=== PATIENT | female | born 1935 | race Caucasian/White ===

== ENCOUNTER 2022-12-26 08:24 | Emergency (ER) | payer MEDICARE, SELFPAY ==
--- NOTE | ~2022-12-26 | XR_ITS ---
XR pelvis 1-2V 12/26/2022 10:00 INDICATION: Pelvic pain after fall PROCEDURE: AP pelvis COMPARISON: No prior studies for comparison. FINDINGS: Fracture, dislocation or subluxation is not identified. Pelvic rings are intact. Osteopenia . The soft tissues appear within normal limits. No foreign bodies are identified. IMPRESSION: 1: NO ACUTE BONE OR JOINT ABNORMALITY IDENTIFIED. Reviewed, dictated and finalized at location B. SIONS INSPECTOR
--- NOTE | ~2022-12-26 | CT_ITS ---
Noncontrast CT scan of the cervical spine Technique: Multiple contiguous axial [address] images of the cervical spine were obtained and rec onstructed in 2D sagittal and coronal planes on the acquisition scanner. Dose reduction technique was used on this scan by utilizing automated exposure control, adjustment of the mA and/or kV according to patient size. Clinical History: Pain Findings: No fracture identified. Minimal grade 1 retrolisthesis of C4 over C5 noted. There is modera te degenerative disc narrowing at C4-C5. There is fusion of the left C2-C3 facet joint. There is mode rate right-sided facet joint degenerative change throughout the cervical spine. There is uncovertebra l degenerative change at C4-C5 and C5-C6. Probable mild bilateral neural foraminal narrowing at C4-C5 . Probable mild canal stenosis at C4-C5. No prevertebral soft tissue swelling. Impression: No fracture. Moderate degenerative spondylosis, as detailed above. Suspected mild canal stenosis and bilateral todd ral foraminal narrowing at C4-C5. Reviewed, dictated and finalized at [facility]. VIORAL CONSULTANT Impression: No fracture. Moderate degenerative spondylosis, as detailed above. Suspected mild canal sten osis and bilateral neural foraminal narrowing at C4-C5.
--- NOTE | ~2022-12-26 | CT_ITS ---
EXAMINATION: CT brain wo con DATE: 12/26/2022 09:54 INDICATION: Head injury. TECHNIQUE: Computed tomography (CT) of the head was performed without intravenous contrast. The dose- length product was 605.33 mGy-cm. Automated exposure control and iterative reconstruction technique w ere employed. COMPARISON: None FINDINGS: Generalized atrophy. There are scattered mild periventricular and subcortical white matter changes, most likely related to small vessel ischemic disease (microangiopathy). There is intracrania l atherosclerosis. No acute infarction, hemorrhage, mass or mass effect. Paranasal sinuses and mastoi ds are pneumatized. No depressed skull fractures. IMPRESSION: 1. No acute intracranial abnormality. Reviewed, dictated and finalized at location B. BREAKER
--- NOTE | ~2022-12-26 | XR_ITS ---
Clinical Indication: Chest pain PA and lateral views of the chest: Comparison: None Findings: The lungs are clear, without evidence of focal consolidation or pleural effusion. Probable COPD. Cardiomediastinal silhouette is within normal limits. Bones and soft tissues are unremarkable. Impression: COPD. Clear lungs. Reviewed, dictated and finalized at location . [employer] WORK Impression: COPD. Clear lungs.
[2022-12-26 08:35] VITALS: BP 161/67; PULSE 68; RESP 16; TEMP 36.6; O2SAT 98
--- NOTE | 2022-12-26 09:24 | ECG_ITS ---
Measurements Intervals [place] Rate: 52 P: 60 MD: 158 QRS: 42 QRSD: 88 T: 46 QT: 492 QTc: 458 Interpretive Statements SINUS BRADYCARDIA PROLONGED QT INTERVAL NO PREVIOUS ECG AVAILABLE FOR COMPARISON Electronically Signed On 12-26-2022 15:03:17 ELECTRICAL PANEL BUILDER by Marcela Gregorio M.D.
--- NOTE | 2022-12-26 09:29 | ED.FALL ---
HPI - Fall General Chief Complaint: Fall Stated Complaint: glf and dizziness Time Seen by Provider: 12/26/22 09:11 Source: patient, EMS and RN notes reviewed Mode of arrival: EMS Limitations: dementia History of Present Illness HPI Narrative: This is a 87-year-old female that presents to the emergency department for a ground-level fall today. Reportedly was found on the floor by nursing staff calling for help. Patient is alert and oriented to self which is baseline for her. She has a laceration on her forehead. She reports a headache. Also reporting she has been having trouble with dizziness lately. She is unsure why she fell. Believes she got out of bed and lost her balance. Related Data Allergies Allergy/AdvReac Type Severity Reaction Status Date / Time PCN Allergy Uncoded 05/17/12 00:36 Review of Systems Review of Systems: ROS unobtainable: Yes unobtainable due to mental status (dementia) [facility] Past Medical History Medical History (Updated 12/26/22 @ 12:20 by Heena Pascual PA-C) History of dementia History of hypothyroidism Social History Social History (Updated 12/26/22 @ 09:35 by Heena Pascual PA-C) Substance use: never Exam Narrative: GENERAL: Elderly, well-nourished, and in no acute distress. HEAD: Normocephalic. 2cm linear laceration into subcutaneous tissue over the right side of the forehead EYES: PERRLA and EOMI. ENT: Nares clear, no rhinorrhea or epistaxis. Mucous membranes moist. Oropharynx without tonsillar hypertrophy exudate or other lesions. Bilateral TMs pearly manrique non-bulging NECK: Supple. No adenopathy or masses. CHEST: Clear to auscultation. No respiratory distress. No wheezes rales or rhonchi HEART: Regular rate and rhythm. No murmur heard. Normal peripheral pulses. BACK: No midline thoracic or lumbar spine tenderness EXTREMITIES: Normal range of motion. No edema or obvious. SKIN: Warm, dry, no rash. NEURO: No focal deficits. Alert and oriented x1. CN II-XII grossly intact PSYCH: Normal mood and affect Course Vital Signs Vital signs: Vital Signs Temperature 97.8 F 12/26/22 08:35 Pulse Rate 68 12/26/22 08:35 Respiratory Rate 16 12/26/22 08:35 Blood Pressure 161/67 H 12/26/22 08:35 Pulse Oximetry 98 12/26/22 08:35 Temperature 97.8 F 12/26/22 08:35 Pulse Rate 62 12/26/22 11:00 Respiratory Rate 20 12/26/22 11:00 Blood Pressure 153/55 H 12/26/22 11:00 Pulse Oximetry 98 12/26/22 11:00 Procedures Laceration Laceration 1: Date: 12/26/22 Time: 12:19 Site: face Side (If applicable): right Size (cm): 4 Description: linear Depth: simple, single layer Local Anesthetic: lidocaine 1% Amount of anesthesia used (mL): 3 Pre-repair: wound explored and irrigated ====== Skin Level ====== Skin layer closed with: nylon Size (cm): 5-0 Number of sutures: 4 Technique: simple, interrupted ====== Subcutaneous Layer ====== ====== Muscle Layer ====== ====== Tendon Layer ====== MDM - Fall MDM Narrative Medical decision making narrative: Patient presents to the emergency department after a fall today with head injury. Is alert and oriented at her baseline. Has no focal deficits. Her vitals are stable. Patient had a laceration noted on her forehead. This was irrigated and closed with sutures. Patient was updated on tetanus. She denies any other focal injuries or areas of pain. Was reporting she had been having some trouble with dizziness over the last several weeks. Thought that she had just lost her balance. CBC is without leukocytosis. Patient is afebrile and nontoxic-appearing. Does show normocytic anemia with hemoglobin of 11. Metabolic panel with maybe some evidence of mild dehydration. Patient hydrated in the ED. Urine is without evidence of infection. CT scan of the brain and cervical spine without acute findings. Chest x-ray and
[2022-12-26 09:44] LABS: Alanine Aminotransferase 17 U/L (6-35); Albumin Level 3.6 g/dL (3.5-5.1); Alkaline Phosphatase 65 U/L (38-126); Anion Gap 2 mmol/L (8-16); Aspartate Amino Transferase 31 U/L (14-36); Bilirubin,Total 0.4 mg/dL (0.2-1.3); Blood Urea Nitrogen 25 mg/dL (7-17); Calcium 8.1 mg/dL (8.4-10.2); Carbon Dioxide 32 mmol/L (22-30); Chloride 104 mmol/L (98-107); Estimated CRCL calculation 30 ml/min; Estimated Glomerular Filt Rate 59; Glucose 90 mg/dL (65-110); Potassium 4.1 mmol/L (3.4-5.0); Sodium 138 mmol/L (137-145)
[2022-12-26 10:10] LABS: Basophils Absolute Auto 0.1 K/mm3 (0.0-0.1); Eosinophils Absolute Auto 0.2 K/mm3 (0-0.3); Eosinophils Percent Auto 2.8 % (0-4.4); Hematocrit 33.8 % (37.0-47.0); Immature Granulocyte Absolute 0.02 K/mm3 (0.00-0.031); Immature Granulocyte Percent A 0.3 % (0-0.5); Lymphocytes Percent Auto 36.3 % (18.3-44.2); Mean Corpuscular HGB Conc 32.5 g/dl (32-36); Mean Corpuscular Hemoglobin 31.6 pg (26-34); Mean Corpuscular Volume 97.1 fl (80-100); Mean Platelet Volume 10.4 fl (7.4-10.4); Monocytes Absolute Auto 1.2 K/mm3 (0.1-0.6); Monocytes Percent Auto 19.9 % (2.6-8.5); Neutrophils Absolute Auto 2.3 K/mm3 (1.3-6.7); Neutrophils Percent Auto 39.7 % (45.5-73.1); Platelet Count Result 199 k/mm3 (150-375); Red Blood Count 3.48 M/mm3 (4.2-5.4); Red Cell Distribution Width 14.7 % (11.5-14.5); White Blood Count 5.8 K/mm3 (4.5-10.0)
[2022-12-26] MEDS: ONDANSETRON INJ 4 MG/2 ML VIAL IV PUSH (10:25)
[2022-12-26] MEDS: SODIUM CHLORIDE 0.9% IV 500 ML 999 ML IV CONT (10:25)
[2022-12-26] MEDS: MECLIZINE HCL 25 MG TABLET PO (10:25)
[2022-12-26] MEDS: LIDOCAINE HCL 1% LOCAL INJ 20 ML VIAL (10:25)
[2022-12-26] MEDS: TETANUS,DIPHTHERIA,AC PERTUSSIS ADULT (0.5 ML) BOOSTRIX IM (10:29)
[2022-12-26 10:30] VITALS: BP 130/84; PULSE 54; RESP 18; O2SAT 96
[2022-12-26 10:52] LABS: Appearance Urine Clear (Clear); Bilirubin Urine Negative (Negative); Blood Urine Negative (Negative); Color Urine Yellow (Yellow); Glucose Urine UA Negative (Negative); Ketones Urine Negative (Negative); Leukocyte Esterase Ur Negative LEU/UL (Negative); Nitrate Urine Negative (Negative); Protein Urine Negative (Negative)
[2022-12-26 11:00] VITALS: BP 153/55; PULSE 62; RESP 20; O2SAT 98
[2022-12-26 11:05] LABS: Add Urine Microscopic? NO
== END 2022-12-26 15:00 ==
PROVIDERS: Emergency Provider Physician Assistant; PCP Internal Medicine
DX: S01.81XA Laceration without foreign body of other part of head, initial encounter (principal); R00.1 Bradycardia, unspecified; E03.9 Hypothyroidism, unspecified; F03.90 Unspecified dementia, unspecified severity, without behavioral disturbance, psychotic disturbance, mood disturbance, and anxiety; W19.XXXA Unspecified fall, initial encounter; Z23 Encounter for immunization
CPT/HCPCS: 12002; 36415; 70450; 71046; 72125; 72170; 80053; 81003; 85025; 90471; 90715; 93005; 96361; 96374; 99284; A9270; J2405; J7040

== ENCOUNTER 2023-01-07 03:04 | Emergency (ER) | payer MEDICARE, SELFPAY ==
[2023-01-07] VITALS (13 sets, daily range): BP systolic 116–179; BP diastolic 39–56; PULSE 53–57; RESP 12–27; O2SAT 97–100
--- NOTE | ~2023-01-07 | XR_ITS ---
EXAMINATION: XR chest 1V portable DATE: 01/07/2023 04:06 INDICATION: Weakness TECHNIQUE: frontal and lateral views of the chest were obtained. COMPARISON: Chest radiograph dated 12/26/2022 FINDINGS: The lungs remain clear with no focal airspace opacities, pulmonary edema, pleural effusion or pneumot horax. Heart size is normal. Moderate-sized hiatal hernia. IMPRESSION: 1. No acute cardiopulmonary disease. 2. Moderate-sized hiatal hernia. Reviewed, dictated and finalized at location A. ETRAILER SERVICER
--- NOTE | ~2023-01-07 | CT_ITS ---
EXAMINATION: CT brain wo con DATE: 01/07/2023 04:27 INDICATION: Dizziness. TECHNIQUE: Computed tomography (CT) of the head was performed without intravenous contrast. The mA wa s adjusted according to patient size. Iterative reconstruction technique was employed. The dose-lengt h product was 605.33 mGy-cm. COMPARISON: Head CT 12/26/2022 FINDINGS: There are scattered areas of low attenuation in the cerebral white matter. There is no intr acranial hemorrhage, acute infarction, or abnormal intracranial mass lesion. The ventricles are ivan l in size. There are likely changes of ocular lens replacement surgeries. There is mild mucosal thick ening in the paranasal sinuses. The mastoid air cells are normal. IMPRESSION: 1. Stable moderate nonspecific cerebral white matter disease, which likely represents chronic small v essel ischemic disease. Reviewed, dictated and finalized at location D. UP WORKER IMPRESSION: 1. Stable moderate nonspecific cerebral white matter disease, which likely repr esents chronic small vessel ischemic disease.
[2023-01-07] MEDS: SODIUM CHLORIDE 0.9% IV 1,000 ML 999 ML IV CONT (03:31)
[2023-01-07] MEDS: MECLIZINE HCL 25 MG TABLET PO (03:31)
[2023-01-07 03:50] LABS: Basophils Absolute Auto 0.1 K/mm3 (0.0-0.1); Basophils Percent Auto 0.9 % (0.2-1.2); Eosinophils Absolute Auto 0.3 K/mm3 (0-0.3); Eosinophils Percent Auto 3.9 % (0-4.4); Hematocrit 33.6 % (37.0-47.0); Immature Granulocyte Absolute 0.01 K/mm3 (0.00-0.031); Immature Granulocyte Percent A 0.1 % (0-0.5); Lymphocytes Absolute Auto 3.29 K/mm3 (0.9-3.2); Lymphocytes Percent Auto 49.3 % (18.3-44.2); Mean Corpuscular HGB Conc 32.7 g/dl (32-36); Mean Corpuscular Hemoglobin 30.9 pg (26-34); Mean Corpuscular Volume 94.4 fl (80-100); Mean Platelet Volume 10.4 fl (7.4-10.4); Monocytes Absolute Auto 1.2 K/mm3 (0.1-0.6); Monocytes Percent Auto 18.4 % (2.6-8.5); Neutrophils Absolute Auto 1.8 K/mm3 (1.3-6.7); Neutrophils Percent Auto 27.4 % (45.5-73.1); Platelet Count Result 194 k/mm3 (150-375); Red Blood Count 3.56 M/mm3 (4.2-5.4); Red Cell Distribution Width 14.5 % (11.5-14.5); White Blood Count 6.7 K/mm3 (4.5-10.0)
--- NOTE | 2023-01-07 03:54 | ED.GENADULT ---
HPI - General Adult General Chief complaint: Dizziness Stated complaint: DIZZINESS Time Seen by Provider: 01/07/23 03:07 History of Present Illness HPI narrative: Patient 87-year-old female who presents the emergency department with chief complaint of dizziness. Patient had a recent fall and had a laceration repaired on her forehead. The patient was at her facility where she lives at and was complaining of feeling lightheaded. The patient reports no new trauma denies vomiting Related Data Home Medications Medication Instructions Recorded Confirmed cyanocobalamin (vitamin B-12) mcg MONTHLY 01/07/23 1,000 mcg/mL injection syringe divalproex 125 mg capsule,delayed 125 mg PO BID 01/07/23 release sprinkle donepezil 10 mg tablet 15 mg PO HS 01/07/23 hydrocortisone 1 % topical cream 1 applic topical BID 01/07/23 levothyroxine 25 mcg tablet 25 mcg PO DAILY 01/07/23 paraben-cetyl alcohol-stearyl topical BID 01/07/23 alcohol-propy glycol-sls topical wheat cleaner sertraline 100 mg tablet 100 mg PO DAILY 01/07/23 Allergies Allergy/AdvReac Type Severity Reaction Status Date / Time egg Allergy Unknown Verified 01/07/23 04:11 influenza virus vacc Allergy Unknown Verified 01/07/23 04:11 trivalent, spl PCN Allergy Unknown Uncoded 01/07/23 04:11 Review of Systems Review of Systems: A 10 system review of systems was completed on the patient and is negative except for what is stated in the HPI. Nursing and ancillary documentation was reviewed. [facility] Past Medical History Medical History History of dementia History of hypothyroidism Social History Social History Substance use: never Exam Narrative: GENERAL: Well-appearing, well-nourished, and in no acute distress. HEAD: Normocephalic, atraumatic. EYES: PERRLA and EOMI. ENT: Nares clear, no rhinorrhea or epistaxis. Mucous membranes moist. NECK: Supple. CHEST: Clear to auscultation. No respiratory distress. HEART: Regular rate and rhythm. No murmur heard. Normal peripheral pulses. ABDOMEN: Soft, nontender, nondistended, normal active bowel sounds. EXTREMITIES: Normal range of motion. No edema. SKIN: Warm, dry, no rash. NEURO: No focal deficits. Alert and oriented x3. PSYCH: Normal mood and affect. Course Vital Signs Vital signs: Vital Signs Pulse Rate 53 L 01/07/23 03:13 Respiratory Rate 12 01/07/23 03:13 Blood Pressure 179/52 H 01/07/23 03:13 Pulse Oximetry 100 01/07/23 03:13 Pulse Rate 53 L 01/07/23 04:01 Respiratory Rate 19 01/07/23 04:01 Blood Pressure 177/49 H 01/07/23 04:01 Pulse Oximetry 100 01/07/23 04:01 Medical Decision Making MDM Narrative Medical decision making narrative: Differential diagnosis includes subdural hematoma, epidural hematoma, cerebral contusion, dehydration electrolyte abnormality vertigo Patient received IV fluids and received a dose of meclizine in the emergency department. Patient is feeling much better at this time CT head shows no evidence of hemorrhage or acute finding. Vital Signs Vital Signs: Vital Signs Pulse Rate 53 L 01/07/23 03:13 Respiratory Rate 12 01/07/23 03:13 Blood Pressure 179/52 H 01/07/23 03:13 Pulse Oximetry 100 01/07/23 03:13 Pulse Rate 53 L 01/07/23 04:01 Respiratory Rate 19 01/07/23 04:01 Blood Pressure 177/49 H 01/07/23 04:01 Pulse Oximetry 100 01/07/23 04:01 Lab Data 01/07/23 03:30 01/07/23 03:30 Labs: Lab Results 01/07/23 01/07/23 01/07/23 Range/Units 03:30 03:30 03:30 WBC 6.7 (4.5-10.0) K/mm3 RBC 3.56 L (4.2-5.4) M/mm3 Hgb 11.0 L (12.0-15.0) g/dL Hct 33.6 L (37.0-47.0) % MCV 94.4 (80-100) fl MCH 30.9 (26-34) pg MCHC 32.7 (32-36) g/dl RDW 14.5 (11.5-14.5) % Plt Count 194 (150-375) k/mm3 MPV 10.4 (7.4
[2023-01-07 03:55] LABS: Lactic Acid Reflex 0.9 mmol/L (0.7-2.0)
[2023-01-07 04:01] LABS: Alanine Aminotransferase 15 U/L (6-35); Albumin Level 3.7 g/dL (3.5-5.1); Alkaline Phosphatase 59 U/L (38-126); Anion Gap 3 mmol/L (8-16); Aspartate Amino Transferase 29 U/L (14-36); Bilirubin,Total 0.5 mg/dL (0.2-1.3); Blood Urea Nitrogen 32 mg/dL (7-17); Calcium 8.7 mg/dL (8.4-10.2); Carbon Dioxide 30 mmol/L (22-30); Chloride 102 mmol/L (98-107); Estimated Glomerular Filt Rate > 60; Glucose 85 mg/dL (65-110); Magnesium 2.4 mg/dL (1.6-2.3); Potassium 4.3 mmol/L (3.4-5.0); Sodium 135 mmol/L (137-145)
[2023-01-07 04:12] LABS: Troponin I < 0.012 ng/mL (0.000-0.034)
[2023-01-07 05:25] LABS: Appearance Urine Clear (Clear); Bacteria Urine Trace /hpf; Bilirubin Urine Negative (Negative); Blood Urine Negative (Negative); Color Urine Yellow (Yellow); Glucose Urine UA Negative (Negative); Ketones Urine Negative (Negative); Leukocyte Esterase Ur Negative LEU/UL (Negative); Mucus Urine Rare /lpf; Nitrate Urine Negative (Negative); Protein Urine Negative (Negative); RBC Urine 0-2 /hpf (0-2); Urobilinogen Urine 0.2 mg/dL (<2.0); WBC Urine 0-3 /hpf
[2023-01-07 05:27] LABS: Add Urine Microscopic? NO
--- NOTE | 2023-01-07 06:02 | PC.NURSE ---
0558 - Spoke with Lam Barbosa. Updated on pt status. Also, spoke with Pt daughter in law and updated her as well.
== END 2023-01-07 07:09 | disposition home or self-care (01) ==
PROVIDERS: Emergency Provider Emergency Medicine; PCP Internal Medicine
DX: R42 Dizziness and giddiness (principal); F03.90 Unspecified dementia, unspecified severity, without behavioral disturbance, psychotic disturbance, mood disturbance, and anxiety; E03.9 Hypothyroidism, unspecified
CPT/HCPCS: 36415; 70450; 71045; 80053; 81003; 83605; 83735; 84484; 85025; 96360; 99284; A9270; J7030